=== PATIENT | male | born 1950 | race Caucasian/White ===

== ENCOUNTER → 2019-08-06 14:53 | Outpatient (ROUT) | payer MEDICARE, OTHER, SELFPAY ==
[2019-08-06 15:23] LABS: Add Manual Diff / Slide Review NO; Basophils Absolute Auto 0 /uL (0-100); Basophils Percent Auto 0.5 % (0-2); Eosinophils Absolute Auto 100 /uL (0-450); Hematocrit 41.9 % (41-53); Hemoglobin 14.5 g/dL (13.5-17.5); Lymphocytes Absolute Auto 1900 /uL (1100-4500); Lymphocytes Percent Auto 40.1 % (25-40); Mean Corpuscular HGB Conc 34.7 % (30-36); Mean Corpuscular Hemoglobin 30.1 PG (26-34); Mean Corpuscular Volume 86.7 fL (80-100); Monocytes Absolute Auto 400 /uL (0-900); Monocytes Percent Auto 9.1 % (3-14); Neutrophils Absolute Auto 2300 /uL (1500-7000); Neutrophils Percent Auto 47.3 % (50-75); Platelet Count 231 X10^3/uL (150-400); Red Blood Cell Count 4.83 X10^6/uL (4.5-5.9); Red Cell Distribution Width 13.7 % (11.6-14.8); White Blood Cell Count 4.9 X10^3/uL (4.5-11.0)
[2019-08-06 15:29] LABS: Alanine Aminotransferase 18 IU/L (<50); Albumin 4.3 g/dL (3.5-5.0); Albumin Globulin Ratio 1.6 (1.0-2.8); Alkaline Phosphatase 56 U/L (38-126); Amylase 44 U/L (30-110); Aspartate Aminotransferase 23 IU/L (17-59); Bilirubin Total 0.6 mg/dL (0.2-1.3); Blood Urea Nitrogen 23 mg/dL (9-20); Calcium 9.9 mg/dL (8.4-10.2); Carbon Dioxide 30 mmol/L (22-32); Chloride 103 mmol/L (98-107); Cholesterol 219 mg/dL (140-199); Estimated Glomerular Filt Rate > 60.0 mL/min (>60); Globulin 2.7 g/dL (1.7-4.1); Glucose 95 mg/dL (80-110); HDL Cholesterol 48 mg/dL (40-60); HEMOLYSIS < 15 (0-50); LDL Cholesterol Calculated 113 mg/dL (<100); Lipase 147 U/L (23-300); Potassium 4.3 mmol/L (3.4-5.1); Sodium 139 mmol/L (137-145); Triglycerides 289 mg/dL (35-150)
[2019-08-06 15:59] LABS: Prostate Specific Antigen 1.38 ng/mL (0.10-4.00)
[2019-08-06 16:01] LABS: TSH w/ Reflex to FT4 2.08 uIU/mL (0.47-4.68)
[2019-08-09 11:18] LABS: Cancer (Carbohydrate) Ag 19-9 10 U/mL (< 34)
== END ==
PROVIDERS: Visit Provider Internal Medicine
DX: Z80.0 Family history of malignant neoplasm of digestive organs (principal); N52.9 Male erectile dysfunction, unspecified; E78.2 Mixed hyperlipidemia; R10.11 Right upper quadrant pain
CPT/HCPCS: 80053; 80061; 82150; 83690; 84153; 84403; 84443; 85025; 86301

== ENCOUNTER → 2020-05-30 08:25 | Outpatient (CLI) | payer MEDICARE, OTHER, SELFPAY ==
[2020-05-30 11:13] LABS: COVID19 -Nasal RAPID Negative (Negative)
== END ==
PROVIDERS: Visit Provider Physician Assistant
DX: Z11.59 Encounter for screening for other viral diseases (principal)
CPT/HCPCS: 87635

== ENCOUNTER 2020-06-01 08:24 | Day surgery (SDC) | payer MEDICARE, OTHER, SELFPAY ==
[2020-06-01] VITALS (7 sets, daily range): BP systolic 116–142; BP diastolic 74–92; PULSE 66–82; RESP 12–16; TEMP 36.3–36.9; O2SAT 91–97; BMI 25.8
--- NOTE | 2020-06-01 | PATH_ITS ---
[facility] Accession Number: [id number] . 01 Material submitted: . PART A: cecum - POLYPS AT CECUM PART B: colon - DISTAL TRANSVERSE COLON POLYPS . 01 Clinical history: . SCREENING COLONOSCOPY . 02 Diagnosis: A. Cecum, Polyps: Fragments of sessile serrated adenoma. . B. Distal Transverse Colon, Polyps: Colonic mucosa with prominent benign lymphoid aggregate x1. Colonic mucosa with no diagnostic abnormality, consistent with polypoid redundancy x1. Negative for serrated lesion, dysplasia or malignancy. MRV 06/03/2020 1037 Local . 02 Electronically signed: . Bryce Alexis MD, PhD, Pathologist NPI- [id number] . 01 Gross description: . Part A: POLYPS AT CECUM: Received in formalin are 4 fragment(s) of torres, soft tissue measuring 0.3 x 0.3 x 0.2 cm to 0.3 x 0.3 x 0.3 cm submitted entirely in 1 cassette(s) Part B: DISTAL TRANSVERSE COLON POLYPS: Received in formalin are 2 fragment(s) of torres, soft tissue measuring 0.7 x 0.2 x 0.1 cm to 0.2 x 0.1 x 0.1 cm submitted entirely in 1 cassette(s) /QBJ 06/02/2020 0716 Local . 02 Pathologist provided ICD-10: D12.0, K63.5 . 02 CPT . 273431, 538314 Performed at: 01 LabCounts include 234 beds at the [facility] [address] [place] [address], [place], [place] [id number] MD Viktor Jacobs MD Phone: [phone] [facility]formed at: [facility] [place] [address] [place], [place] [id number] MD Nasrin Coombs MD Phone: [phone]
[2020-06-01] MEDS: SODIUM CHLORIDE 0.9% 1,000 ML 21 ML IV (08:46)
--- NOTE | 2020-06-01 09:02 | PM.HP.1 ---
History of Present Illness History of Present Illness Date Patient Seen: 06/01/20 Chief complaint: SCREENING COLONOSCOPY Narrative: Colorectal cancer screening. Second colonoscopy. Last over 10 years ago Patient History Medical History (Updated 06/01/20 @ 08:42 by Nasrin Goode RN) Hypercholesteremia Family & Social History Social History: household members spouse Tobacco & Substance use: Smoking Status Never smoker alcohol intake current alcohol intake frequency a few times a month Substance Use Type does not use Meds Home Medications and Allergies Home Medications Medication Instructions Recorded Confirmed Type No Known Home Medications 06/01/20 06/01/20 History Allergies Allergy/AdvReac Type Severity Reaction Status Date / Time No Known Drug Allergies Allergy Verified 06/01/20 08:42 Exam Vital Signs (past 8 hours): - 06/01/20 08:47 Temperature 97.4 F L Pulse Rate 73 Respiratory Rate 16 Blood Pressure 142/92 H Pulse Oximetry 97 Oxygen Delivery Method Room Air Narrative Exam Narrative: Oropharynx free of lesions Chest clear to auscultation percussion Cardiac exam reveals no S3 or murmur Assessment & Plan Assessment & Plan narrative: Colon cancer screening. Risks, benefits, alternatives have been explained.
--- NOTE | 2020-06-01 09:03 | PM.OP.ENDO ---
Operative Date/Time/Diagnoses Date of procedure: 06/01/20 Pre-op diagnosis: See indication and findings Procedure & Clinicians Study performed: Colonoscopy Same procedure as scheduled: Yes Indications: Need for colorectal cancer screening. Last colonoscopy -11 to 12 years ago Surgeon: Karlee Long Procedure Notes Procedure in detail: After informed consent was obtained the patient was placed in left lateral decubitus position. The video colonoscope was introduced the rectum slowly advanced to the cecum. Preparation was good. On slow withdrawal mucosa was carefully examined. The scope was removed. The patient tolerated procedure well. Blood loss none Complications none Sedation Total sedation time 12 minutes Versed 5 mg fentanyl 100 micro g IV titration Findings 1. Extensive sigmoid diverticulosis with small mouthed diverticula 2. Three polyps labeled cecum. All were 3-4 mm in size. One was on the IC valve, 1 was on the cecal rim, one was just distal to the cecal rim. All were cold biopsied and removed with Jumbo biopsy forceps 3. Two polyps 3-4 mm in size in the distal transverse colon. All were removed with Jumbo biopsy forceps 4. Otherwise negative colonoscopy to cecum Patient will need follow-up and interval to be dictated by the pathology report.
[2020-06-01] MEDS: fentaNYL 250 MCG/5 ML INJ IV (09:23)
[2020-06-01] MEDS: MIDAZOLAM 5 MG/5 ML VIAL IV (09:31)
== END 2020-06-01 10:31 | disposition home or self-care (01) ==
PROVIDERS: PCP Internal Medicine; Referring Provider Internal Medicine; Visit Provider Internal Medicine Gastroenterology
PROC: 0DJD8ZZ Inspection of Lower Intestinal Tract, Via Natural or Artificial Opening Endoscopic (ICD-10-PCS; CPT 45378; principal; 2020-06-01 09:30)
DX: Z12.11 Encounter for screening for malignant neoplasm of colon (principal); K57.30 Diverticulosis of large intestine without perforation or abscess without bleeding; D12.0 Benign neoplasm of cecum; E78.00 Pure hypercholesterolemia, unspecified
CPT/HCPCS: 45380; J2250; J3010

== ENCOUNTER → 2020-08-11 13:04 | Outpatient (CLI) | payer MEDICARE, OTHER, SELFPAY ==
[2020-08-11] MEDS: COVID-19 VACC #1, MRNA(MOD) 100 MCG/0.5 ML VIAL IM (13:08)
== END ==
PROVIDERS: PCP Internal Medicine; Visit Provider Internal Medicine
DX: Z23 Encounter for immunization (principal)
CPT/HCPCS: 0011A; 91301

== ENCOUNTER → 2020-09-08 12:44 | Outpatient (CLI) | payer MEDICARE, OTHER, SELFPAY ==
[2020-09-08] MEDS: COVID-19 VACC #2, MRNA(MOD) 100 MCG/0.5 ML VIAL IM (12:54)
== END ==
PROVIDERS: PCP Internal Medicine; Visit Provider Internal Medicine
DX: Z23 Encounter for immunization (principal)
CPT/HCPCS: 0012A; 91301

== ENCOUNTER → 2022-02-06 11:06 | Outpatient (CLI) | payer MEDICARE, OTHER, SELFPAY ==
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
== END ==
PROVIDERS: PCP Internal Medicine; Referring Provider Physician Assistant; Visit Provider Physician Assistant
DX: M47.817 Spondylosis without myelopathy or radiculopathy, lumbosacral region (principal); M16.0 Bilateral primary osteoarthritis of hip; R52 Pain, unspecified
CPT/HCPCS: 71101; 73502

== ENCOUNTER → 2022-05-23 09:00 | Outpatient (CLI) | payer MEDICARE, OTHER, SELFPAY ==
[2022-05-23 09:55] LABS: Hematocrit 42.4 % (41-53); Hemoglobin 14.3 g/dL (13.5-17.5); Mean Corpuscular HGB Conc 33.7 % (30-36); Mean Corpuscular Hemoglobin 29.4 PG (26-34); Mean Corpuscular Volume 87.2 fL (80-100); Platelet Count 208 X10^3/uL (150-400); Red Blood Cell Count 4.86 X10^6/uL (4.5-5.9); Red Cell Distribution Width 13.7 % (11.6-14.8); White Blood Cell Count 5.1 X10^3/uL (4.5-11.0)
[2022-05-23 10:30] LABS: Alanine Aminotransferase 30 IU/L (<50); Albumin 4.2 g/dL (3.5-5.0); Albumin Globulin Ratio 1.6 (1.0-2.8); Alkaline Phosphatase 57 U/L (38-126); Aspartate Aminotransferase 24 IU/L (17-59); BUN Creatinine Ratio 26.2 (6-22); Bilirubin Total 0.5 mg/dL (0.2-1.3); Blood Urea Nitrogen 22 mg/dL (9-20); Calcium 9.2 mg/dL (8.4-10.2); Carbon Dioxide 29 mmol/L (22-32); Chloride 102 mmol/L (98-107); Cholesterol 165 mg/dL (140-199); Estimated Glomerular Filt Rate > 60 mL/min (>60); Globulin 2.6 g/dL (1.7-4.1); Glucose 70 mg/dL (80-110); HDL Cholesterol 58 mg/dL (40-60); HEMOLYSIS < 15 (0-50); LDL Cholesterol Calculated 66 mg/dL (<100); Potassium 4.1 mmol/L (3.4-5.1); Sodium 138 mmol/L (137-145); Total Protein 6.8 g/dL (6.3-8.2); Triglycerides 207 mg/dL (35-150)
[2022-05-23 10:57] LABS: TSH w/ Reflex to FT4 2.03 uIU/mL (0.47-4.68)
[2022-05-23 10:58] LABS: Prostate Specific Antigen 2.43 ng/mL (0.10-4.00)
== END ==
PROVIDERS: PCP Internal Medicine; Referring Provider Internal Medicine; Visit Provider Internal Medicine
DX: E78.2 Mixed hyperlipidemia (principal); N40.1 Benign prostatic hyperplasia with lower urinary tract symptoms; N13.8 Other obstructive and reflux uropathy; Z86.010 Personal history of colon polyps
CPT/HCPCS: 36415; 80053; 80061; 84153; 84443; 85027

== ENCOUNTER 2022-07-02 14:30 | Outpatient (RCR) | payer MEDICARE, OTHER, SELFPAY ==
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
--- NOTE | 2022-06-04 17:33 | PT.OPPOC ---
Physical, Occupational & Speech Therapy At [facility] Current Diagnoses Other shoulder lesions, right shoulder (06/04/22) Visit Care Team Role Provider Type Tristan Contreras MD Attending Provider Physician Primary Care Provider Referring Provider Specialty: Internal Medicine Address: [address] [place] [address], [id number] Email: [email or web address] Plan Of Care PT-OP-T Assessment and Plan Start: 06/01/22 18:08 Freq: Status: Active Protocol: Document 06/04/22 09:06 LRN (Rec: 06/04/22 12:53 LRN [id number]) Physical Therapy Assessment Rehab Potential Rehabilitation Potential Excellent Evaluation Complexity Number of Personal Factors/Comorbidities 1-2 Number of Body Systems Impaired 4 or More Clinical Presentation at Evaluation Evolving Impairments Impairments Activity Tolerance,Functional Mobility,Pain,Posture,ROM,Soft Tissue Mobility,Strength Goals Four Impairment R shoulder Impairment Pain ful ar with active shoulder flexion and AB. Painful arc flexion is 100-140 deg's. Painful arc with AB starting at 90 deg's. Short Term Goal (STG) Improve R shoulder rotator cuff strength with reduction of painful arc. STG Duration 07/02/22 Long-Term Goal (LTG) Improve R shoulder strength with pt able to put something up on a shelf overhead without pain. LTG Duration 08/31/22 Three Impairment R shoulder pain interrupts sleep, pain rated 3/10. Impairment Pt currently wakes 4-5x/night due to R shoulder pain (norm is 7-8 hrs of broken sleep, waking 2x/night). Short Term Goal (STG) Pt will be educated in sleeping postures to minimize onset of R shoulder pain. STG Duration 06/15/22 Long-Term Goal (LTG) Pt will be able to sleep better at night, waking 2x/ night, his baseline. LTG Duration 08/31/22 Two Impairment Decreased R shoulder PROM Impairment + impingement with forced R shoulder flexion in sitting and supine. PROM (in deg's): Flex 165 R, 180 L; 90 R. Record Pressman Goal (LTG) Increasing PROM to have less pain with dressing and sleeping. LTG Duration 08/31/22 One Impairment HEP Short Term Goal (STG) Pt will be independent on a scapular stabilizing HEP to provide strength and muscle support to the R shoulder. STG Duration 07/02/22 Long-Term Goal (LTG) Pt will be independent on a self care, specific shoulder home program to prevent reinjury of R shoulder. LTG Duration 08/31/22 Assessment Summary Assessment Pt is a 71 yo male who presents with + impingement symptoms during provocation testing, indicating R rotator cuff dysfunction. He appears to have atrophy of the Supraspinatus and is getting anterior shoulder impingement. Pt was guarded; therefore did not perform Clunk Test for possible joint dysfunction. Pt did appear to have greater R GHJ mobility. Physical Therapy Plan Frequency and Duration Frequency of Treatment 2x/Week Plan of Care Start Date 06/04/22 Plan of Care End Date 08/31/22 Therapeutic Interventions Therapeutic Interventions Home Exercise Program,Manual Therapy,Patient/Caregiver Education,Self-Care/Home Management,Soft Tissue Mobilization,Taping, Therapeutic Activities, Therapeutic Exercises Modalities Cold Pack/Ice Massage,Electric Stimulation,Hot Packs, Ultrasound Other Referrals/Consults Referrals/Consults Recommended If pt is not able to make good progress in 6 weeks, then further imaging would be recommended. Next Visit Focus/Plan Next Note Type Treatment Note Next Visit Plan MMT shoulder and elbows, assess R shoulder clunk test. Assess PROM/AROM R shoulder painful arc & reaching across chest. Education: Best night time positioning to reduce R shoulder pain. Ex's: ROM & R shoulder RC and scapular stabilizer strengthening. Modalities for pain: Cryotherapy. US if prolonged pain. Plan of Care Dates Plan of Care Start Date 06/04/22 Plan of Care End Date 08/31/22 Electronically Signed by: Zoraida Daniel, PT 06/04/22 5207 If you are in agreement with this Plan of Care, please return a signed and dated copy. I have reviewed this Plan of Care and certify that the skilled therapy services above are required to meet the patient?s needs. Physician Signature Date Printed Name and Credentials Clinical Instructor Signature Printed Name and Credentials
--- NOTE | 2022-06-12 19:00 | PT.OTN ---
Current Diagnoses Other shoulder lesions, right shoulder (06/12/22) Physical Therapy Treatment Note PT-OP-A Visit Information Start: 06/01/22 18:08 Freq: Status: Active Protocol: Document 06/12/22 08:16 LRN (Rec: 06/12/22 09:01 LRN [id number]) Out-Patient Physical Therapy Visit Information Visit Information Visit Type Treatment Note Visit Start Time 08:16 Visit Stop Time 08:58 Total Visit Minutes 42 Visit Number 2 Evaluation Information Evaluation Date 06/04/22 Precautions Precautions Melanoma on nose w/surgery 2009. PT-OP-B Current Condition Start: 06/01/22 18:08 Freq: Status: Active Protocol: Document 06/04/22 09:06 LRN (Rec: 06/04/22 12:53 LRN [id number]) Current Condition History of Current Condition Onset Date 2017, reinjured 2 months ago. Current Complaints R shoulder pain. History of Current Condition Originally hiking and fell forward; he grabbed something causing his arm to be pulled backwards while he fell forward and he felt something pull in the R shoulder. Two months ago was pulling his kayak with his R arm (post kayaking) and fell foward. He again felt something pull in the R shoulder. He now has R shoulder pain with sleeping and decreased AROM. Tends to sleep on hi R side with arm overhead and sometimes in all different positions. Pt is L handed. PMH: Mealanoma surgery bridge of nose of 2009 . Prior Treatments and Tests None. Initial injury no tests, took care of itself on its own. Future Testing and Treatments Planned None Developmental History Developmental History Dupytren's on L hand ring finger. Treatment Goals Patient/Caregiver Goals Pt goal is to be able to sleep better at night (norm is 7-8 hr broken sleep 4-5x; currently 7-8 hrs broken sleep waking 2x and with R shoulder pain). Increase strength and muscle support. Decreasing or eleviating rid of pain when pulling arm back. Increasing ROM to have less pain with putting something on a shelf, dressing. Prevent reinjury with a specific shoulder home program . Prior Functional Status Baseline Function- ADL's Independent Baseline Function- Mobility Independent Baseline Function- Other Pt has 7-8 hrs of broken sleep waking 2x a night. Current Functional Impairments (Reported) Functional Limitations- ADL's Pt has 7-8 hrs of broken sleep , waking 4-5x a night with R shoulder pain. Personal Factors Other Personal Factors That May Effect Doesn't do much ex during Therapy/Recovery winter. PT-OP-C Subjective Start: 06/01/22 18:08 Freq: Status: Active Protocol: Document 06/12/22 08:16 LRN (Rec: 06/12/22 09:01 LRN [id number]) OP-PT Subjective Patient Comments Patient Comments Maybe a little better. PT-OP-E Functional Tests Start: 06/01/22 18:08 Freq: Status: Active Protocol: Document 06/04/22 09:06 LRN (Rec: 06/04/22 12:53 LRN [id number]) Functional Tests Apley's Scratch Test Action 2- Left T2 Action 2- Right C6 Action 3- Left T11 Action 3- Right L1 PT-OP-J Posture/Palpation/Skin Start: 06/01/22 18:08 Freq: Status: Active Protocol: Document 06/04/22 09:06 LRN (Rec: 06/04/22 12:53 LRN [id number]) Posture Evaluation Position Standing Head/C-Spine Posture Forward Head T-Spine Posture Flattened L-Spine Posture Decreased Lordosis Scapula Posture (R) Protracted,(R) Retracted,( R) Rotated Up Arm Posture (L) Internally Rotated Pelvis Posture Anteriorly Tilted Weight Distribution Balanced Comments Posture Comments R shoulder retracted, R foot ER> L foot, R arm-mild IR, notable IR of L arm. Palpation Assessment Location R shoulder Palpation Location Around shoulder joint. Palpation Details No palpable pain. Supraspinatus atrophy. PT-OP-K Range of Motion Start: 06/01/22 18:08 Freq: Status: Active Protocol: Document 06/12/22 08:16 LRN (Rec: 06/12/22 09:01 LRN [id number]) Shoulder Goniometric Range of Motion Shoulder Right Passive Testing Position Supine Flexion 165 Abduction 130 External Rotation at 90 degrees 90 Abduction Internal Rotation 60 Comments Pain 130 - 180 deg's AB Left Passive Testing Position Supine Flexion 180 External Rotation at 90 degrees 90 Abduction Internal Rotation 60 Right Active Testing Position Sitting Flexion 155 Extension 55 Abduction 180 Internal Rotation Behind Back (text) L1 Comments Painful arc 100-140 deg's Left Active Testing Position Sitting Flexion 155 Extension 50 Abduction 180 Internal Rotation Behind Back (text) T11 Comments ROM is taken with cuing to UB not to arch. ER T2-T3 interspace. PT-OP-L Special Tests Start: 06/01/22 18:08 Freq: Status: Active Protocol: Document 06/04/22 09:06 LRN (Rec: 06/04/22 12:53 LRN [id number]) Special Tests Shoulder Special Tests AC Joint Compression Test Results - R Belly Press Test Results - R Empty Can Test Results - R IR/Horizontal ADD Impingement Test Results - R Elevation Impingement Test Results + R PT-OP-M Strength Start: 06/01/22 18:08 Freq: Status: Active Protocol: Document 06/12/22 08:16 LRN (Rec: 06/12/22 09:01 LRN [id number]) Shoulder Strength Shoulder Manual Muscle Testing Right Flexion 4- Good- Extension 5 Normal Abduction (C5) 5 Normal Adduction 5 Normal External Rotation 4- Good- Internal Rotation 4- Good- Left Comments Generally 5/5 Elbow/Forearm Strength Elbow and Forearm Manual Muscle Testing Right Comments Generally 5/5 Left Comments Generally 5/5 PT-OP-Q Treatments Start: 06/01/22 18:08 Freq: Status: Active Protocol: Document 06/12/22 08:16 LRN (Rec: 06/12/22 09:01 LRN [id number]) Therapeutic Exercises Supine Exercises Lat pull down Supine Exercise Name Lat pull down Side bilateral Equipment Used Lev 2 TB Reps/Minutes 15x Sitting Exercises Shoulder IR strengthening Sitting Exercise Name Shoulder IR strengthening Side right Reps/Minutes 15x 2 Comments N0 pain, extra time to determine max tolerated range. Shoulder ER strengthening Sitting Exercise Name Shoulder ER strengthening Side right Equipment Used Lev 2 Reps/Minutes 15x 3 Comments N0 pain, extra time to determine max tolerated range. Standing Exercises Scapular retract/depression Standing Exercise Name Active scapular retract/ depression Side bilateral Equipment Used mirror Reps/Minutes 15x 2 Comments Extra time to train for proper movement. Self-Care/Home Management Treatment Education Patient Education Body Mechanics,Home Exercise Program,Pain Management Other Education Educated pt in shoulder anatomy and possible reasons for pain, with model used. I/S pt in use of crotherapy for pain management. Activities Self-Care/Home Management Activities Issued & reviewed HEP of: dangling arm (codman), scapular retract row w/o TB, and shoulder rolls. PT-OP-T Assessment and Plan Start: 06/01/22 18:08 Freq: Status: Active Protocol: Document 06/12/22 08:16 LRN (Rec: 06/12/22 09:01 LRN [id number]) Physical Therapy Assessment Goals Four Impairment R shoulder Impairment Pain ful ar with active shoulder flexion and AB. Painful arc flexion is 100-140 deg's. Painful arc with AB starting at 90 deg's. Short Term Goal (STG) Improve R shoulder rotator cuff strength with reduction of painful arc. STG Duration 07/02/22 Test Preparation Tutor Goal (LTG) Improve R shoulder strength with pt able to put something up on a shelf overhead without pain. LTG Duration 08/31/22 Three Impairment R shoulder pain interrupts sleep, pain rated 3/10. Impairment Pt currently wakes 4-5x/night due to R shoulder pain (norm is 7-8 hrs of broken sleep, waking 2x/night). Short Term Goal (STG) Pt will be educated in sleeping postures to minimize onset of R shoulder pain. STG Duration 06/15/22 Test Preparation Tutor Goal (LTG) Pt will be able to sleep better at night, waking 2x/ night, his baseline. LTG Duration 08/31/22 Two Impairment Decreased R shoulder PROM Impairment + impingement with forced R shoulder flexion in sitting and supine. PROM (in deg's): Flex 165 R, 180 L; 90 R. Test Preparation Tutor Goal (LTG) Increasing PROM to have less pain with dressing and sleeping. LTG Duration 08/31/22 One Impairment HEP Short Term Goal (STG) Pt will be independent on a scapular stabilizing HEP to provide strength and muscle support to the R shoulder. 06/12/22: HEP: Shoulder ER/ IR, scap retract/depression, shoulder rolls. STG Duration 07/02/22 progressing [facility] Goal (LTG) Pt will be independent on a self care, specific shoulder home program to prevent reinjury of R shoulder. 06/12/22: HEP: Shoulder ER/ IR, scap retract/depression, shoulder rolls. LTG Duration 08/31/22 Progress Towards Goals Progress Comments Progressed HEP. Assessment Summary Assessment R shoulder strength is limited with IR/ER due to pain but AB is normal; therefore it appears RC dysfunction is with subscapularis and posterior scapular muscles. Elbow strength is WNL. Shoulder sore with IR strengthening, and R shoulder painful arc is less at 130-180 deg's supine ( was 100-140 deg's sitting). Physical Therapy Plan Frequency and Duration Frequency of Treatment 2x/Week Plan of Care Start Date 06/04/22 Plan of Care End Date 08/31/22 Next Visit Focus/Plan Next Note Type Treatment Note Next Visit Plan Assess R shoulder clunk test. Assess PROM/AROM R shoulder reaching across chest. Education: Best night time positioning to reduce R shoulder pain (STG 3). Ex's: ROM & R shoulder RC and scapular stabilizer strengthening (caution with IR due to discomfort with strengthening). Modalities for pain: Cryotherapy. US if prolonged pain.
--- NOTE | 2022-06-14 08:13 | PT.OTN ---
Current Diagnoses Other shoulder lesions, right shoulder (06/14/22) Physical Therapy Treatment Note PT-OP-A Visit Information Start: 06/01/22 18:08 Freq: Status: Active Protocol: Document 06/14/22 07:30 TS (Rec: 06/14/22 09:49 TS [id number]) Out-Patient Physical Therapy Visit Information Visit Information Visit Type Treatment Note Visit Note SAAD Wren lead treatment under direction and supervision of MELISSA Egan. Visit Start Time 07:30 Visit Stop Time 08:13 Total Visit Minutes 43 Visit Number 3 PT-OP-B Current Condition Start: 06/01/22 18:08 Freq: Status: Active Protocol: Document 06/04/22 09:06 LRN (Rec: 06/04/22 12:53 LRN [id number]) Current Condition History of Current Condition Onset Date 2017, reinjured 2 months ago. Current Complaints R shoulder pain. History of Current Condition Originally hiking and fell forward; he grabbed something causing his arm to be pulled backwards while he fell forward and he felt something pull in the R shoulder. Two months ago was pulling his kayak with his R arm (post kayaking) and fell foward. He again felt something pull in the R shoulder. He now has R shoulder pain with sleeping and decreased AROM. Tends to sleep on hi R side with arm overhead and sometimes in all different positions. Pt is L handed. PMH: Mealanoma surgery bridge of nose of 2009 . Prior Treatments and Tests None. Initial injury no tests, took care of itself on its own. Future Testing and Treatments Planned None Developmental History Developmental History Dupytren's on L hand ring finger. Treatment Goals Patient/Caregiver Goals Pt goal is to be able to sleep better at night (norm is 7-8 hr broken sleep 4-5x; currently 7-8 hrs broken sleep waking 2x and with R shoulder pain). Increase strength and muscle support. Decreasing or eleviating rid of pain when pulling arm back. Increasing ROM to have less pain with putting something on a shelf, dressing. Prevent reinjury with a specific shoulder home program . Prior Functional Status Baseline Function- ADL's Independent Baseline Function- Mobility Independent Baseline Function- Other Pt has 7-8 hrs of broken sleep waking 2x a night. Current Functional Impairments (Reported) Functional Limitations- ADL's Pt has 7-8 hrs of broken sleep , waking 4-5x a night with R shoulder pain. Personal Factors Other Personal Factors That May Effect Doesn't do much ex during Therapy/Recovery winter months. PT-OP-C Subjective Start: 06/01/22 18:08 Freq: Status: Active Protocol: Document 06/14/22 07:30 TS (Rec: 06/14/22 09:49 TS [id number]) OP-PT Subjective Patient Comments Patient Comments Pt reports R shoulder is feeling pretty good today. He is doing better about not sleeping on his R shoulder. PT-OP-E Functional Tests Start: 06/01/22 18:08 Freq: Status: Active Protocol: Document 06/04/22 09:06 LRN (Rec: 06/04/22 12:53 LRN [id number]) Functional Tests Apley's Scratch Test Action 2- Left T2 Action 2- Right C6 Action 3- Left T11 Action 3- Right L1 PT-OP-J Posture/Palpation/Skin Start: 06/01/22 18:08 Freq: Status: Active Protocol: Document 06/04/22 09:06 LRN (Rec: 06/04/22 12:53 LRN [id number]) Posture Evaluation Position Standing Head/C-Spine Posture Forward Head T-Spine Posture Flattened L-Spine Posture Decreased Lordosis Scapula Posture (R) Protracted,(R) Retracted,( R) Rotated Up Arm Posture (L) Internally Rotated Pelvis Posture Anteriorly Tilted Weight Distribution Balanced Comments Posture Comments R shoulder retracted, R foot ER> L foot, R arm-mild IR, notable IR of L arm. Palpation Assessment Location R shoulder Palpation Location Around shoulder joint. Palpation Details No palpable pain. Supraspinatus atrophy. PT-OP-K Range of Motion Start: 06/01/22 18:08 Freq: Status: Active Protocol: Document 06/12/22 08:16 LRN (Rec: 06/12/22 09:01 LRN [id number]) Shoulder Goniometric Range of Motion Shoulder Right Passive Testing Position Supine Flexion 165 Abduction 130 External Rotation at 90 degrees 90 Abduction Internal Rotation 60 Comments Pain 130 - 180 deg's AB Left Passive Testing Position Supine Flexion 180 External Rotation at 90 degrees 90 Abduction Internal Rotation 60 Right Active Testing Position Sitting Flexion 155 Extension 55 Abduction 180 Internal Rotation Behind Back (text) L1 Comments Painful arc 100-140 deg's Left Active Testing Position Sitting Flexion 155 Extension 50 Abduction 180 Internal Rotation Behind Back (text) T11 Comments ROM is taken with cuing to UB not to arch. ER T2-T3 interspace. PT-OP-L Special Tests Start: 06/01/22 18:08 Freq: Status: Active Protocol: Document 06/04/22 09:06 LRN (Rec: 06/04/22 12:53 LRN [id number]) Special Tests Shoulder Special Tests AC Joint Compression Test Results - R Belly Press Test Results - R Empty Can Test Results - R IR/Horizontal ADD Impingement Test Results - R Elevation Impingement Test Results + R PT-OP-M Strength Start: 06/01/22 18:08 Freq: Status: Active Protocol: Document 06/12/22 08:16 LRN (Rec: 06/12/22 09:01 LRN [id number]) Shoulder Strength Shoulder Manual Muscle Testing Right Flexion 4- Good- Extension 5 Normal Abduction (C5) 5 Normal Adduction 5 Normal External Rotation 4- Good- Internal Rotation 4- Good- Left Comments Generally 5/5 Elbow/Forearm Strength Elbow and Forearm Manual Muscle Testing Right Comments Generally 5/5 Left Comments Generally 5/5 PT-OP-Q Treatments Start: 06/01/22 18:08 Freq: Status: Active Protocol: Document 06/14/22 07:30 TS (Rec: 06/14/22 09:49 TS [id number]) Therapeutic Exercises Supine Exercises HABD AROM Side right Reps/Minutes 1x15 Comments Pt reports slight discomfort on anterior shoulder with a pull or twinge Lat pull down Supine Exercise Name Lat pull down Side bilateral Equipment Used Lev 2 TB, red dowel Reps/Minutes 2x10 Comments Good carryover from previous treatment Sitting Exercises UT, LV Stretch Sitting Exercise Name UT, levator scap Side bilateral Reps/Minutes 3x30 Comments Good response to stretch, reports imporved donning of jacket. Lat Pulldown Sitting Exercise Name Demonstrated for home Side bilateral Reps/Minutes 2x10 Comments Cues for arms further apart, upright posture Rows Sitting Exercise Name Standing Reps/Minutes 2x10 Comments Cues for scap retract, posture , elbow tucked D2 Reps/Minutes 1x10 tb1, 1x10 no TB Comments Cues for pain free Shoulder IR strengthening Sitting Exercise Name Shoulder IR strengthening, standing Side right Reps/Minutes 10x 2 Comments Cues for elbow tuck, posture, pain free range Shoulder ER strengthening Sitting Exercise Name Shoulder ER strengthening, standing Side right Equipment Used Lev 2 Reps/Minutes 2x10 Comments Cues for elbow tuck, posture Standing Exercises Serratus Punch Standing Exercise Name Added to HEP Side bilateral Equipment Used LVL 1 TB Reps/Minutes 2x10 Comments Cues for no UT act PT-OP-T Assessment and Plan Start: 06/01/22 18:08 Freq: Status: Active Protocol: Document 06/14/22 07:30 TS (Rec: 06/14/22 09:49 TS [id number]) Physical Therapy Assessment Goals Four Impairment R shoulder Impairment Pain ful ar with active shoulder flexion and AB. Painful arc flexion is 100-140 deg's. Painful arc with AB starting at 90 deg's. Short Term Goal (STG) Improve R shoulder rotator cuff strength with reduction of painful arc. STG Duration 07/02/22 Avionics Repair Technician Goal (LTG) Improve R shoulder strength with pt able to put something up on a shelf overhead without pain. LTG Duration 08/31/22 Three Impairment R shoulder pain interrupts sleep, pain rated 3/10. Impairment Pt currently wakes 4-5x/night due to R shoulder pain (norm is 7-8 hrs of broken sleep, waking 2x/night). Short Term Goal (STG) Pt will be educated in sleeping postures to minimize onset of R shoulder pain. STG Duration 06/15/22 [facility] Goal (LTG) Pt will be able to sleep better at night, waking 2x/ night, his baseline. LTG Duration 08/31/22 Two Impairment Decreased R shoulder PROM Impairment + impingement with forced R shoulder flexion in sitting and supine. PROM (in deg's): Flex 165 R, 180 L; 90 R. Avionics Repair Technician Goal (LTG) Increasing PROM to have less pain with dressing and sleeping. LTG Duration 08/31/22 One Impairment HEP Short Term Goal (STG) Pt will be independent on a scapular stabilizing HEP to provide strength and muscle support to the R shoulder. 06/12/22: HEP: Shoulder ER/ IR, scap retract/depression, shoulder rolls. 06/14/22: Serratus punches with TB, UT stretch, LS stretch. STG Duration 07/02/22 progressing 06/14 [facility] Goal (LTG) Pt will be independent on a self care, specific shoulder home program to prevent reinjury of R shoulder. 06/12/22: HEP: Shoulder ER/ IR, scap retract/depression, shoulder rolls. 06/14/22:Serratus punches with TB, UT Stretch, LS stretch. LTG Duration 08/31/22 Progressing 06/14/22 Assessment Summary Assessment Pt reports less difficulty donning coat after UT/LV stretch. Pt reported slight discomfort/twinge in shoulder with HABD. Pt required consistent cues to stay in pain free range during ex. Pt progressed IR with tb lvl 2, reported feeling fatigued but no discomfort. Pt will continue to benefit from intervention to improve R shoulder ROM/strength for donnning/doffing clothing. Physical Therapy Plan Frequency and Duration Frequency of Treatment 2x/Week Plan of Care Start Date 06/04/22 Plan of Care End Date 08/31/22 Therapeutic Interventions Therapeutic Interventions Home Exercise Program,Manual Therapy,Patient/Caregiver Education,Self-Care/Home Management,Soft Tissue Mobilization,Taping, Therapeutic Activities, Therapeutic Exercises Modalities Cold Pack/Ice Massage,Electric Stimulation,Hot Packs, Ultrasound Next Visit Focus/Plan Next Visit Plan Assess ROM and clunk test next treatment. Continue shoulder ex, assess HEP (UT/LS stretch, serratus punches). Give feedback to goals. Education: Best night time positioning to reduce R shoulder pain (STG 3). Ex's: ROM & R shoulder RC and scapular stabilizer strengthening (caution with IR due to discomfort with strengthening). Modalities for pain: Cryotherapy. US if prolonged pain.
--- NOTE | 2022-06-26 10:05 | PT.OTN ---
Current Diagnoses Other shoulder lesions, right shoulder (06/26/22) Physical Therapy Treatment Note PT-OP-A Visit Information Start: 06/01/22 18:08 Freq: Status: Active Protocol: Document 06/26/22 08:14 LRN (Rec: 06/26/22 09:04 LRN [id number]) Out-Patient Physical Therapy Visit Information Visit Information Visit Type Treatment Note Visit Start Time 08:15 Visit Stop Time 08:56 Total Visit Minutes 41 Visit Number 4 Evaluation Information Evaluation Date 06/04/22 Precautions Precautions Melanoma on nose w/surgery 2009. PT-OP-B Current Condition Start: 06/01/22 18:08 Freq: Status: Active Protocol: Document 06/04/22 09:06 LRN (Rec: 06/04/22 12:53 LRN [id number]) Current Condition History of Current Condition Onset Date 2017, reinjured 2 months ago. Current Complaints R shoulder pain. History of Current Condition Originally hiking and fell forward; he grabbed something causing his arm to be pulled backwards while he fell forward and he felt something pull in the R shoulder. Two months ago was pulling his kayak with his R arm (post kayaking) and fell foward. He again felt something pull in the R shoulder. He now has R shoulder pain with sleeping and decreased AROM. Tends to sleep on hi R side with arm overhead and sometimes in all different positions. Pt is L handed. PMH: Mealanoma surgery bridge of nose of 2009 . Prior Treatments and Tests None. Initial injury no tests, took care of itself on its own. Future Testing and Treatments Planned None Developmental History Developmental History Dupytren's on L hand ring finger. Treatment Goals Patient/Caregiver Goals Pt goal is to be able to sleep better at night (norm is 7-8 hr broken sleep 4-5x; currently 7-8 hrs broken sleep waking 2x and with R shoulder pain). Increase strength and muscle support. Decreasing or eleviating rid of pain when pulling arm back. Increasing ROM to have less pain with putting something on a shelf, dressing. Prevent reinjury with a specific shoulder home program . Prior Functional Status Baseline Function- ADL's Independent Baseline Function- Mobility Independent Baseline Function- Other Pt has 7-8 hrs of broken sleep waking 2x a night. Current Functional Impairments (Reported) Functional Limitations- ADL's Pt has 7-8 hrs of broken sleep , waking 4-5x a night with R shoulder pain. Personal Factors Other Personal Factors That May Effect Doesn't do much ex during Therapy/Recovery winter. PT-OP-C Subjective Start: 06/01/22 18:08 Freq: Status: Active Protocol: Document 06/26/22 08:14 LRN (Rec: 06/26/22 09:04 LRN [id number]) OP-PT Subjective Patient Comments Patient Comments Some days it's pretty good and has noticed somedays no pain with moving the arm. PT-OP-E Functional Tests Start: 06/01/22 18:08 Freq: Status: Active Protocol: Document 06/04/22 09:06 LRN (Rec: 06/04/22 12:53 LRN [id number]) Functional Tests Apley's Scratch Test Action 2- Left T2 Action 2- Right C6 Action 3- Left T11 Action 3- Right L1 PT-OP-J Posture/Palpation/Skin Start: 06/01/22 18:08 Freq: Status: Active Protocol: Document 06/04/22 09:06 LRN (Rec: 06/04/22 12:53 LRN [id number]) Posture Evaluation Position Standing Head/C-Spine Posture Forward Head T-Spine Posture Flattened L-Spine Posture Decreased Lordosis Scapula Posture (R) Protracted,(R) Retracted,( R) Rotated Up Arm Posture (L) Internally Rotated Pelvis Posture Anteriorly Tilted Weight Distribution Balanced Comments Posture Comments R shoulder retracted, R foot ER> L foot, R arm-mild IR, notable IR of L arm. Palpation Assessment Location R shoulder Palpation Location Around shoulder joint. Palpation Details No palpable pain. Supraspinatus atrophy. PT-OP-K Range of Motion Start: 06/01/22 18:08 Freq: Status: Active Protocol: Document 06/12/22 08:16 LRN (Rec: 06/12/22 09:01 LRN [id number]) Shoulder Goniometric Range of Motion Shoulder Right Passive Testing Position Supine Flexion 165 Abduction 130 External Rotation at 90 degrees 90 Abduction Internal Rotation 60 Comments Pain 130 - 180 deg's AB Left Passive Testing Position Supine Flexion 180 External Rotation at 90 degrees 90 Abduction Internal Rotation 60 Right Active Testing Position Sitting Flexion 155 Extension 55 Abduction 180 Internal Rotation Behind Back (text) L1 Comments Painful arc 100-140 deg's Left Active Testing Position Sitting Flexion 155 Extension 50 Abduction 180 Internal Rotation Behind Back (text) T11 Comments ROM is taken with cuing to UB not to arch. ER T2-T3 interspace. PT-OP-L Special Tests Start: 06/01/22 18:08 Freq: Status: Active Protocol: Document 06/26/22 08:14 LRN (Rec: 06/26/22 10:05 LRN [id number]) Special Tests Cervical Spine Special Tests Traction Test Results + Comments Reduction of anterior R shoulder pain w/mvmt Shoulder Special Tests Clunk Test Test Results - R shoulder Comments Pt did have consistent click in anterior R shoulder (in supine) on lowering of arm at 53 deg's flex. PT-OP-M Strength Start: 06/01/22 18:08 Freq: Status: Active Protocol: Document 06/12/22 08:16 LRN (Rec: 06/12/22 09:01 LRN [id number]) Shoulder Strength Shoulder Manual Muscle Testing Right Flexion 4- Good- Extension 5 Normal Abduction (C5) 5 Normal Adduction 5 Normal External Rotation 4- Good- Internal Rotation 4- Good- Left Comments Generally 5/5 Elbow/Forearm Strength Elbow and Forearm Manual Muscle Testing Right Comments Generally 5/5 Left Comments Generally 5/5 PT-OP-Q Treatments Start: 06/01/22 18:08 Freq: Status: Active Protocol: Document 06/26/22 08:14 LRN (Rec: 06/26/22 09:04 LRN [id number]) Therapeutic Exercises Supine Exercises PROM R shoulder Supine Exercise Name Shoulder passive flex, AB, ER Side right Reps/Minutes 3' Lat pull down Supine Exercise Name Lat pull down Side bilateral Equipment Used Lev 2 TB, 2#, dowel Reps/Minutes 10x 3 Comments No pain with ex Standing Exercises R shldr IR Standing Exercise Name Shoulder IR strengthening, standing Equipment Used Lev 2 TB Reps/Minutes 10x 3, alternating with IR R shldr ER Standing Exercise Name Shoulder ER strengthening, standing Equipment Used Lev 2 TB, towel under elbow Reps/Minutes 10x 3, alternating with IR Comments Cues for elbow tuck, posture, pain free range Manual Therapy Treatment Soft Tissue Mobilization R Pecs Body Location R Pec Min/Frankie at Proximal end Mobilization Type Sustained Pressure Intensity/Depth Moderate Body Position Supine Manual Traction Cervical Details Manual axial & L SB traction Body Position Hooklying Reps/Duration 8' Comments Reduction of R shoulder pain with traction PT-OP-T Assessment and Plan Start: 06/01/22 18:08 Freq: Status: Active Protocol: Document 06/26/22 08:14 LRN (Rec: 06/26/22 09:04 LRN [id number]) Physical Therapy Assessment Goals Four Impairment R shoulder Impairment Pain ful ar with active shoulder flexion and AB. Painful arc flexion is 100-140 deg's. Painful arc with AB starting at 90 deg's. Short Term Goal (STG) Improve R shoulder rotator cuff strength with reduction of painful arc. STG Duration 07/02/22 Fpc Goal (LTG) Improve R shoulder strength with pt able to put something up on a shelf overhead without pain. LTG Duration 08/31/22 Three Impairment R shoulder pain interrupts sleep, pain rated 3/10. Impairment Pt currently wakes 4-5x/night due to R shoulder pain (norm is 7-8 hrs of broken sleep, waking 2x/night). Short Term Goal (STG) Pt will be educated in sleeping postures to minimize onset of R shoulder pain. STG Duration 06/15/22 Fpc Goal (LTG) Pt will be able to sleep better at night, waking 2x/ night, his baseline. LTG Duration 08/31/22 Two Impairment Decreased R shoulder PROM Impairment + impingement with forced R shoulder flexion in sitting and supine. PROM (in deg's): Flex 165 R, 180 L; 90 R. Fpc Goal (LTG) Increasing PROM to have less pain with dressing and sleeping. LTG Duration 08/31/22 One Impairment HEP Short Term Goal (STG) Pt will be independent on a scapular stabilizing HEP to provide strength and muscle support to the R shoulder. 06/12/22: HEP: Shoulder ER/ IR, scap retract/depression, shoulder rolls. 06/14/22: Serratus punches with TB, UT stretch, LS stretch. STG Duration 07/02/22 progressing 06/14 Fpc Goal (LTG) Pt will be independent on a self care, specific shoulder home program to prevent reinjury of R shoulder. 06/12/22: HEP: Shoulder ER/ IR, scap retract/depression, shoulder rolls. 06/14/22:Serratus punches with TB, UT Stretch, LS stretch. LTG Duration 08/31/22 Progressing 06/14/22 Assessment Summary Assessment Negative Clunk Test, although with AAROM pt had click consistently with Supine Extension when returning from overhead position at 53 deg's flex. + Manual C tx resulting in reduction of R anterior shoulder pain on shoulder flex . Pt tolerance to ex improving. Pt may have labral tear, but testing is inconclusive. Cervical neural involvement may be present but testing is inconclusive. Further ongoing assessment is needed. Physical Therapy Plan Frequency and Duration Frequency of Treatment 2x/Week Plan of Care Start Date 06/04/22 Plan of Care End Date 08/31/22 Next Visit Focus/Plan Next Visit Plan Assess R shoulder ROM. Continue shoulder ex, assess HEP (UT/LS stretch, serratus punches). Give feedback to goals. Education: Best night time positioning to reduce R shoulder pain (STG 3). Ex's: ROM & R shoulder RC and scapular stabilizer strengthening (caution with IR due to discomfort with strengthening). Modalities for pain: Cryotherapy. US if prolonged pain.
--- NOTE | 2022-07-02 17:00 | PT.OTN ---
Current Diagnoses Other shoulder lesions, right shoulder (07/02/22) Physical Therapy Treatment Note PT-OP-A Visit Information Start: 06/01/22 18:08 Freq: Status: Active Protocol: Document 07/02/22 14:38 LRN (Rec: 07/02/22 16:59 LRN [id number]) Out-Patient Physical Therapy Visit Information Visit Information Visit Type Treatment Note Visit Start Time 14:38 Visit Stop Time 15:26 Total Visit Minutes 48 Visit Number 5 Evaluation Information Evaluation Date 06/04/22 Precautions Precautions Melanoma on nose w/surgery 2009. PT-OP-B Current Condition Start: 06/01/22 18:08 Freq: Status: Active Protocol: Document 06/04/22 09:06 LRN (Rec: 06/04/22 12:53 LRN [id number]) Current Condition History of Current Condition Onset Date 2017, reinjured 2 months ago. Current Complaints R shoulder pain. History of Current Condition Originally hiking and fell forward; he grabbed something causing his arm to be pulled backwards while he fell forward and he felt something pull in the R shoulder. Two months ago was pulling his kayak with his R arm (post kayaking) and fell foward. He again felt something pull in the R shoulder. He now has R shoulder pain with sleeping and decreased AROM. Tends to sleep on hi R side with arm overhead and sometimes in all different positions. Pt is L handed. PMH: Mealanoma surgery bridge of nose of 2009 . Prior Treatments and Tests None. Initial injury no tests, took care of itself on its own. Future Testing and Treatments Planned None Developmental History Developmental History Dupytren's on L hand ring finger. Treatment Goals Patient/Caregiver Goals Pt goal is to be able to sleep better at night (norm is 7-8 hr broken sleep 4-5x; currently 7-8 hrs broken sleep waking 2x and with R shoulder pain). Increase strength and muscle support. Decreasing or eleviating rid of pain when pulling arm back. Increasing ROM to have less pain with putting something on a shelf, dressing. Prevent reinjury with a specific shoulder home program . Prior Functional Status Baseline Function- ADL's Independent Baseline Function- Mobility Independent Baseline Function- Other Pt has 7-8 hrs of broken sleep waking 2x a night. Current Functional Impairments (Reported) Functional Limitations- ADL's Pt has 7-8 hrs of broken sleep , waking 4-5x a night with R shoulder pain. Personal Factors Other Personal Factors That May Effect Doesn't do much ex during Therapy/Recovery winter. PT-OP-C Subjective Start: 06/01/22 18:08 Freq: Status: Active Protocol: Document 07/02/22 14:38 LRN (Rec: 07/02/22 16:59 LRN [id number]) OP-PT Subjective Patient Comments Patient Comments Noticing more periods where the shoulder doesn't hurt. Was wonderig if the Statin drug might be causing the R shoulder pain. PT-OP-E Functional Tests Start: 06/01/22 18:08 Freq: Status: Active Protocol: Document 06/04/22 09:06 LRN (Rec: 06/04/22 12:53 LRN [id number]) Functional Tests Apley's Scratch Test Action 2- Left T2 Action 2- Right C6 Action 3- Left T11 Action 3- Right L1 PT-OP-J Posture/Palpation/Skin Start: 06/01/22 18:08 Freq: Status: Active Protocol: Document 06/04/22 09:06 LRN (Rec: 06/04/22 12:53 LRN [id number]) Posture Evaluation Position Standing Head/C-Spine Posture Forward Head T-Spine Posture Flattened L-Spine Posture Decreased Lordosis Scapula Posture (R) Protracted,(R) Retracted,( R) Rotated Up Arm Posture (L) Internally Rotated Pelvis Posture Anteriorly Tilted Weight Distribution Balanced Comments Posture Comments R shoulder retracted, R foot ER> L foot, R arm-mild IR, notable IR of L arm. Palpation Assessment Location R shoulder Palpation Location Around shoulder joint. Palpation Details No palpable pain. Supraspinatus atrophy. PT-OP-K Range of Motion Start: 06/01/22 18:08 Freq: Status: Active Protocol: Document 07/02/22 14:38 LRN (Rec: 07/02/22 16:59 LRN [id number]) Shoulder Goniometric Range of Motion Shoulder Right Passive Testing Position Supine Flexion 180 Abduction 180 External Rotation at 90 degrees 90 Abduction Internal Rotation 77 Comments Pain 150 - 180 deg's flex Right Active Testing Position Sitting Flexion 180 Extension 60 Abduction 180 Internal Rotation Behind Back (text) L1 Comments Painful arc 120-180 deg's ABD PT-OP-L Special Tests Start: 06/01/22 18:08 Freq: Status: Active Protocol: Document 06/26/22 08:14 LRN (Rec: 06/26/22 10:05 LRN [id number]) Special Tests Cervical Spine Special Tests Traction Test Results + Comments Reduction of anterior R shoulder pain w/mvmt Shoulder Special Tests Clunk Test Test Results - R shoulder Comments Pt did have consistent click in anterior R shoulder (in supine) on lowering of arm at 53 deg's flex. PT-OP-M Strength Start: 06/01/22 18:08 Freq: Status: Active Protocol: Document 06/12/22 08:16 LRN (Rec: 06/12/22 09:01 LRN [id number]) Shoulder Strength Shoulder Manual Muscle Testing Right Flexion 4- Good- Extension 5 Normal Abduction (C5) 5 Normal Adduction 5 Normal External Rotation 4- Good- Internal Rotation 4- Good- Left Comments Generally 5/5 Elbow/Forearm Strength Elbow and Forearm Manual Muscle Testing Right Comments Generally 5/5 Left Comments Generally 5/5 PT-OP-Q Treatments Start: 06/01/22 18:08 Freq: Status: Active Protocol: Document 07/02/22 14:38 LRN (Rec: 07/02/22 16:59 LRN [id number]) Therapeutic Exercises Supine Exercises Shoulder AROM stretch Supine Exercise Name Shoulder active flex, AB, ER Side right Reps/Minutes 5' Neck Elongation Supine Exercise Name Neck Elongation Reps/Minutes 10 SH x 6 PROM R shoulder Supine Exercise Name PROM R shoulder (Flex, AB, ER, IR Side right Reps/Minutes 15 HABD AROM Supine Exercise Name Horiz AB AROM Side right Reps/Minutes 1' Lat pull down Supine Exercise Name Lat pull down Side bilateral Equipment Used Lev 2 TB, 2#, dowel Reps/Minutes 10x 3 Comments No pain with ex Standing Exercises Neck Elongation w/Row Standing Exercise Name Neck Elongation w/row Comments Extra time needed for education in ex with phys & v cuing to top of head Row Standing Exercise Name Scapular pinches w/o shoulder shrug Side bilateral Reps/Minutes 15 x 2 R shldr IR Standing Exercise Name Shoulder IR strengthening, standing Side right Equipment Used Lev 2 TB Reps/Minutes 10x 3, alternating with IR R shldr ER Standing Exercise Name Shoulder ER strengthening, standing Side right Equipment Used Lev 2 TB, towel under elbow Reps/Minutes 10x 3, alternating with IR Comments Cues for elbow tuck, posture, pain free range Manual Therapy Treatment Manual Traction Cervical Details Manual axial & L SB traction Body Position Hooklying Reps/Duration 8' Comments Reduction of R shoulder pain with traction Self-Care/Home Management Treatment Education Patient Education Posture Other Education Pt educated in best night time positioning (best head/neck posturing in alignment) to reduce R shoulder pain in sidelie and supine. Activities Self-Care/Home Management Activities Issued handout of picture of sidelie positioning. PT-OP-T Assessment and Plan Start: 06/01/22 18:08 Freq: Status: Active Protocol: Document 07/02/22 14:38 LRN (Rec: 07/02/22 16:59 LRN [id number]) Physical Therapy Assessment Goals Four Impairment R shoulder Impairment Pain ful ar with active shoulder flexion and AB. Painful arc flexion is 100-140 deg's. Painful arc with AB starting at 90 deg's. Short Term Goal (STG) Improve R shoulder rotator cuff strength with reduction of painful arc. STG Duration 07/02/22 Alf Goal (LTG) Improve R shoulder strength with pt able to put something up on a shelf overhead without pain. LTG Duration 08/31/22 Three Impairment R shoulder pain interrupts sleep, pain rated 3/10. Impairment Pt currently wakes 4-5x/night due to R shoulder pain (norm is 7-8 hrs of broken sleep, waking 2x/night). Short Term Goal (STG) Pt will be educated in sleeping postures to minimize onset of R shoulder pain. STG Duration 06/15/22 (07/02/22: MET GOAL) Alf Goal (LTG) Pt will be able to sleep better at night, waking 2x/ night, his baseline. LTG Duration 08/31/22 Two Impairment Decreased R shoulder PROM Impairment + impingement with forced R shoulder flexion in sitting and supine. PROM (in deg's): Flex 165 R, 180 L; 90 R. Alf Goal (LTG) Increasing PROM to have less pain with dressing and sleeping. LTG Duration 08/31/22 One Impairment HEP Short Term Goal (STG) Pt will be independent on a scapular stabilizing HEP to provide strength and muscle support to the R shoulder. 06/12/22: HEP: Shoulder ER/ IR, scap retract/depression, shoulder rolls. 06/14/22: Serratus punches with TB, UT stretch, LS stretch. 07/02/22: I/S pt in scap retract ex. STG Duration 07/02/22 progressing [employer]ical Mixer Goal (LTG) Pt will be independent on a self care, specific shoulder home program to prevent reinjury of R shoulder. 06/12/22: HEP: Shoulder ER/ IR, scap retract/depression, shoulder rolls. 06/14/22:Serratus punches with TB, UT Stretch, LS stretch. 07/02/22: I/S pt in scap retract ex. LTG Duration 08/31/22 Progressing Assessment Summary Assessment Pt's painfree AROM is improving although painful arc (Passive supine flex 150-180 deg's, Active AB sitting 120- 180 deg's) is still present. Pt was very receptive to education for best night time positioning to reduce R shoulder pain and appears to have a good understanding of neutral positioning of head on shoulders. Sitting manual C. tx resulted in reduction of R shoulder pain with AB, but pain not eliminated. In supine C. tx eliminated R shoulder pain with active AB; therefore there is a Cervical and GHJ mechanical component to his R shoulder pain. Physical Therapy Plan Frequency and Duration Frequency of Treatment 2x/Week Plan of Care Start Date 06/04/22 Plan of Care End Date 08/31/22 Next Visit Focus/Plan Next Visit Plan Continue RC/scap stab shoulder strengthening, assess HEP (UT /LS stretch, serratus punches) . Review and issue handouts for Row, and add lat pull down and ER/IR strengthening. Give feedback to goals. Ex's: ROM & R shoulder RC and scapular stabilizer strengthening (caution with IR due to discomfort with strengthening). Modalities for pain: Cryotherapy. US if prolonged pain.
--- NOTE | 2022-07-02 17:10 | PT.OPDS ---
Current Diagnoses Other shoulder lesions, right shoulder (07/02/22) Visit Care Team Role Provider Type Tristan Contreras MD Attending Provider Physician Primary Care Provider Referring Provider Specialty: Internal Medicine Address: [address] [place] [address], [facility] Email: [email or web address] Visit Number Visit Number 5 Discharge Summary PT-OP-B Current Condition Start: 06/01/22 18:08 Freq: Status: Active Protocol: Document 06/04/22 09:06 LRN (Rec: 06/04/22 12:53 LRN [id number]) Current Condition History of Current Condition Onset Date 2017, reinjured 2 months ago. Current Complaints R shoulder pain. History of Current Condition Originally hiking and fell forward; he grabbed something causing his arm to be pulled backwards while he fell forward and he felt something pull in the R shoulder. Two months ago was pulling his kayak with his R arm (post kayaking) and fell foward. He again felt something pull in the R shoulder. He now has R shoulder pain with sleeping and decreased AROM. Tends to sleep on hi R side with arm overhead and sometimes in all different positions. Pt is L handed. PMH: [place] surgery bridge of nose of 2009 . Prior Treatments and Tests None. Initial injury no tests, took care of itself on its own. Future Testing and Treatments Planned None Developmental History Developmental History Dupytren's on L hand ring finger. Treatment Goals Patient/Caregiver Goals Pt goal is to be able to sleep better at night (norm is 7-8 hr broken sleep 4-5x; currently 7-8 hrs broken sleep waking 2x and with R shoulder pain). Increase strength and muscle support. Decreasing or eleviating rid of pain when pulling arm back. Increasing ROM to have less pain with putting something on a shelf, dressing. Prevent reinjury with a specific shoulder home program . Prior Functional Status Baseline Function- ADL's Independent Baseline Function- Mobility Independent Baseline Function- Other Pt has 7-8 hrs of broken sleep waking 2x a night. Current Functional Impairments (Reported) Functional Limitations- ADL's Pt has 7-8 hrs of broken sleep , waking 4-5x a night with R shoulder pain. Personal Factors Other Personal Factors That May Effect Doesn't do much ex during Therapy/Recovery winter months. PT-OP-C Subjective Start: 06/01/22 18:08 Freq: Status: Active Protocol: Document 07/02/22 14:38 LRN (Rec: 07/02/22 16:59 LRN [id number]) OP-PT Subjective Patient Comments Patient Comments Noticing more periods where the shoulder doesn't hurt. Was wonderig if the Statin drug might be causing the R shoulder pain. PT-OP-E Functional Tests Start: 06/01/22 18:08 Freq: Status: Active Protocol: Document 06/04/22 09:06 LRN (Rec: 06/04/22 12:53 LRN [id number]) Functional Tests Apley's Scratch Test Action 2- Left T2 Action 2- Right C6 Action 3- Left T11 Action 3- Right L1 PT-OP-J Posture/Palpation/Skin Start: 06/01/22 18:08 Freq: Status: Active Protocol: Document 06/04/22 09:06 LRN (Rec: 06/04/22 12:53 LRN [id number]) Posture Evaluation Position Standing Head/C-Spine Posture Forward Head T-Spine Posture Flattened L-Spine Posture Decreased Lordosis Scapula Posture (R) Protracted,(R) Retracted,( R) Rotated Up Arm Posture (L) Internally Rotated Pelvis Posture Anteriorly Tilted Weight Distribution Balanced Comments Posture Comments R shoulder retracted, R foot ER> L foot, R arm-mild IR, notable IR of L arm. Palpation Assessment Location R shoulder Palpation Location Around shoulder joint. Palpation Details No palpable pain. Supraspinatus atrophy. PT-OP-K Range of Motion Start: 06/01/22 18:08 Freq: Status: Active Protocol: Document 07/02/22 14:38 LRN (Rec: 07/02/22 16:59 LRN [id number]) Shoulder Goniometric Range of Motion Shoulder Right Passive Testing Position Supine Flexion 180 Abduction 180 External Rotation at 90 degrees 90 Abduction Internal Rotation 77 Comments Pain 150 - 180 deg's flex Right Active Testing Position Sitting Flexion 180 Extension 60 Abduction 180 Internal Rotation Behind Back (text) L1 Comments Painful arc 120-180 deg's ABD PT-OP-L Special Tests Start: 06/01/22 18:08 Freq: Status: Active Protocol: Document 06/26/22 08:14 LRN (Rec: 06/26/22 10:05 N [id number]) Special Tests Cervical Spine Special Tests Traction Test Results + Comments Reduction of anterior R shoulder pain w/mvmt Shoulder Special Tests Clunk Test Test Results - R shoulder Comments Pt did have consistent click in anterior R shoulder (in supine) on lowering of arm at 53 deg's flex. PT-OP-M Strength Start: 06/01/22 18:08 Freq: Status: Active Protocol: Document 06/12/22 08:16 LRN (Rec: 06/12/22 09:01 LRN [id number]) Shoulder Strength Shoulder Manual Muscle Testing Right Flexion 4- Good- Extension 5 Normal Abduction (C5) 5 Normal Adduction 5 Normal External Rotation 4- Good- Internal Rotation 4- Good- Left Comments Generally 5/5 Elbow/Forearm Strength Elbow and Forearm Manual Muscle Testing Right Comments Generally 5/5 Left Comments Generally 5/5 PT-OP-T Assessment and Plan Start: 06/01/22 18:08 Freq: Status: Active Protocol: Document 07/02/22 17:03 LRN (Rec: 07/02/22 17:10 LRN [id number]) Physical Therapy Assessment Goals Four Impairment R shoulder Impairment Pain ful ar with active shoulder flexion and AB. Painful arc flexion is 100-140 deg's. Painful arc with AB starting at 90 deg's. Short Term Goal (STG) Improve R shoulder rotator cuff strength with reduction of painful arc. STG Duration 07/02/22 Bank Clerk Goal (LTG) Improve R shoulder strength with pt able to put something up on a shelf overhead without pain. LTG Duration 08/31/22 Three Impairment R shoulder pain interrupts sleep, pain rated 3/10. Impairment Pt currently wakes 4-5x/night due to R shoulder pain (norm is 7-8 hrs of broken sleep, waking 2x/night). Short Term Goal (STG) Pt will be educated in sleeping postures to minimize onset of R shoulder pain. STG Duration 06/15/22 (07/02/22: MET GOAL) Bank Clerk Goal (LTG) Pt will be able to sleep better at night, waking 2x/ night, his baseline. LTG Duration 08/31/22 Two Impairment Decreased R shoulder PROM Impairment + impingement with forced R shoulder flexion in sitting and supine. PROM (in deg's): Flex 165 R, 180 L; 90 R. Shelter Goal (LTG) Increasing PROM to have less pain with dressing and sleeping. LTG Duration 08/31/22 One Impairment HEP Short Term Goal (STG) Pt will be independent on a scapular stabilizing HEP to provide strength and muscle support to the R shoulder. 06/12/22: HEP: Shoulder ER/ IR, scap retract/depression, shoulder rolls. 06/14/22: Serratus punches with TB, UT stretch, LS stretch. 07/02/22: I/S pt in scap retract ex. STG Duration 07/02/22 progressing Shelter Goal (LTG) Pt will be independent on a self care, specific shoulder home program to prevent reinjury of R shoulder. 06/12/22: HEP: Shoulder ER/ IR, scap retract/depression, shoulder rolls. 06/14/22:Serratus punches with TB, UT Stretch, LS stretch. 07/02/22: I/S pt in scap retract ex. LTG Duration 08/31/22 Progressing Assessment Summary Assessment After pt's appointment today, he informed schedulers that he is good enough to be discharged from his program. Pt's painfree AROM was improved although painful arc (Passive supine flex 150-180 deg's, Active AB sitting 120- 180 deg's) was still present. Sitting manual C. tx resulted in reduction of R shoulder pain with AB, but pain not eliminated, but in supine C. tx eliminated R shoulder pain with active AB; therefore there appears to have a Cervical and GHJ mechanical component to his R shoulder pain. The pt has periods of no pain, but he could benefit from completing his rehab program in order to maximize his R shoulder strength and stability. We would be more than happy to work with this pleasant individual again. The pt is being discharged from physical therapy at the pt's request. Physical Therapy Plan Discharge Physical Therapy Discharge Reasons Patient Request Discharge Comments Patient cancelled his final visit and feels that he is good enough to be discharged from his program. The pt could benefit from further physical therapy (see assessment above). Thank you for your referral.
== END 2022-07-04 09:17 | disposition home or self-care (01) ==
LOC: PHYS 14:30
PROVIDERS: PCP Internal Medicine; Referring Provider Internal Medicine; Visit Provider Internal Medicine
DX: M75.81 Other shoulder lesions, right shoulder (principal)
CPT/HCPCS: 97110; 97140; 97162; 97535

== ENCOUNTER → 2022-12-05 08:32 | Outpatient (CLI) | payer MEDICARE, OTHER, SELFPAY ==
[2022-12-07 07:42] LABS: PSA Free % 24.2 % (.); PSA, Total 1.9 ng/mL (0.0-4.0)
== END ==
PROVIDERS: PCP Internal Medicine; Referring Provider Internal Medicine; Visit Provider Internal Medicine
DX: R97.20 Elevated prostate specific antigen [PSA] (principal)
CPT/HCPCS: 36415; 84153; 84154

== ENCOUNTER → 2023-07-23 16:21 | Outpatient (CLI) | payer MEDICARE, BC, SELFPAY ==
[2023-07-23 17:45] LABS: Aspartate Aminotransferase 27 IU/L (17-59); BUN Creatinine Ratio 22.8 (6-22); Blood Urea Nitrogen 23 mg/dL (9-20); Calcium 9.6 mg/dL (8.4-10.2); Carbon Dioxide 29 mmol/L (22-32); Chloride 98 mmol/L (98-107); Cholesterol 178 mg/dL (140-199); Estimated Glomerular Filt Rate > 60 mL/min (>60); Glucose 89 mg/dL (80-110); HDL Cholesterol 63 mg/dL (40-60); HEMOLYSIS < 15 (0-50); LDL Cholesterol Calculated 94 mg/dL (<100); Potassium 3.8 mmol/L (3.4-5.1); Sodium 135 mmol/L (137-145); Triglycerides 106 mg/dL (35-150)
[2023-07-23 18:15] LABS: Prostate Specific Antigen 2.65 ng/mL (0.10-4.00)
== END ==
LOC: LAB 16:24
PROVIDERS: PCP Internal Medicine; Referring Provider Internal Medicine; Visit Provider Internal Medicine
DX: R97.20 Elevated prostate specific antigen [PSA] (principal); E78.2 Mixed hyperlipidemia; N40.1 Benign prostatic hyperplasia with lower urinary tract symptoms; N13.8 Other obstructive and reflux uropathy
CPT/HCPCS: 36415; 80048; 80061; 84153; 84450

== ENCOUNTER 2023-07-24 08:43 | Day surgery (SDC) | payer MEDICARE, OTHER, SELFPAY ==
--- NOTE | 2023-07-24 | PATH_ITS ---
[facility] Accession Number: [id number] No. of containers..02 Tissue . 01 Material submitted: . PART A: colon - POLYP AT 60cm PART B: colon - LEFT COLON POLYP . 01 Diagnosis: A. Colon At 60 cm: Benign lymphoid aggregate. . B. Left Colon, Polyp: Benign lymphoid aggregate. [facility] 07/31/2023 0952 Local . 01 Electronically signed: . Nasrin Coombs MD, Pathologist NPI- [id number] . 01 Gross description: . Part A: POLYP AT 60cm: Received in formalin is 3 fragment(s) of torres, soft tissue measuring 0.4 x 0.2 x 0.1 cm to 0.2 x 0.1 x 0.1 cm submitted entirely in 1 cassette(s) Part B: LEFT COLON POLYP: Received in formalin is 2 fragment(s) of torres, soft tissue measuring 0.3 x 0.2 x 0.2 cm to 0.2 x 0.2 x 0.1 cm submitted entirely in 1 cassette(s) /FIDEL 07/25/2023 0537 Local . 01 Pathologist provided ICD-10: K63.5 . 01 CPT . 483134, [id number] Specimen Comment: A courtesy copy of this report has been sent to [phone] Performed at: [facility] [address] [place] [address], [place], [place] [id number] MD Viktor Jacobs MD Phone: [phone]
[2023-07-24 09:01] VITALS: BMI 25.7
[2023-07-24 09:06] VITALS: BP 143/85; PULSE 75; RESP 16; TEMP 36.1; O2SAT 96
[2023-07-24] MEDS: LACTATED RINGERS 1,000 ML 42 ML IV (09:09)
--- NOTE | 2023-07-24 10:02 | P.HP_ITS ---
History of Present Illness History of Present Illness Chief complaint: Dx Colonoscopy w/poss bx Narrative: Family history of colon cancer in a distant relative and personal history of colon polyps need for follow-up colonoscopy FOR[facility], [facility] Medical History (Updated 07/23/23 @ 12:47 by Tristan Contreras MD) Rising PSA level Overweight Right rotator cuff tendonitis BPH w urinary obs/LUTS History of melanoma Actinic keratosis Chicken pox Cataracts, bilateral Diverticular disease Colon polyps Dupuytren contracture History of colonic polyps Erectile dysfunction Mixed hyperlipidemia Hypercholesteremia Surgical History History of cataract removal with insertion of prosthetic lens (~10/04/09) Status post Mohs surgery (~07/28/12) Family History Father Cancer Mother Macular degeneration Glaucoma Blind Hypertension Hyperlipidemia TIA (transient ischemic attack) Brother Cancer Social History household members: spouse Smoking Status: Never smoker alcohol intake: current Meds Home Medications and Allergies Home Medications Medication Instructions Recorded Confirmed Type rosuvastatin 10 mg tablet 10 mg PO DAILY #90 tabs 05/23/22 07/24/23 Rx sildenafil (pulm.hypertension) 20 20 mg PO DAILY PRN sexual activity 05/23/22 07/24/23 History mg tablet Allergies Allergy/AdvReac Type Severity Reaction Status Date / Time No Known Drug Allergies Allergy Verified 07/24/23 09:00 Exam Vital Signs (past 8 hours): - 07/24/23 09:06 Temperature 96.9 F L Pulse Rate 75 Respiratory Rate 16 Blood Pressure 143/85 H Pulse Oximetry 96 Oxygen Delivery Method Room Air Oxygen Delivery Method Room Air Narrative Exam Narrative: Oropharynx free of lesions Chest clear to auscultation percussion Cardiac exam reveals no S3 or murmur Assessment & Plan Assessment & Plan narrative: Personal history of colon polyps and family history of colon cancer need for follow-up colonoscopy. Risks, benefits, alternatives have been explained.
--- NOTE | 2023-07-24 10:03 | PM.OP.COLON ---
Operative Date/Time/Diagnoses Date of procedure: 07/24/23 Pre-op diagnosis: See indication and findings Procedure & Clinicians Study performed: Family history of colon cancer in a distant relative and personal history of colon polyps. Indications: Colonoscopy Surgeon: Karlee Long Procedure Notes Procedure in detail: After informed consent was obtained the patient was placed in left lateral decubitus position. The video colonoscope was introduced the rectum slowly advanced cecum. Preparation was good. On slow withdrawal mucosa was carefully examined. The scope was removed. The patient tolerated the procedure well. Blood loss none Complications none Sedation mac Findings 1. Two polyps at 60 cm Jumbo biopsy removed 2. Two polyps in the rectosigmoid Jumbo biopsy removed 3. Extensive diverticulosis in the left colon 4. Otherwise negative colonoscopy to cecum Will be in touch with patient regarding follow-up colonoscopy based on pathology.
[2023-07-24 10:29] VITALS: BP 110/62; PULSE 70; RESP 22; TEMP 36.6; O2SAT 94
[2023-07-24 10:34] VITALS: BP 108/63; PULSE 66; RESP 18; O2SAT 96
[2023-07-24 10:39] VITALS: BP 121/65; PULSE 62; RESP 18; O2SAT 96
[2023-07-24 10:45] VITALS: BP 118/70; PULSE 65; RESP 22; TEMP 35.8; O2SAT 98
[2023-07-24 10:50] VITALS: BP 120/72; PULSE 61; RESP 21; O2SAT 99
== END 2023-07-24 11:05 | disposition home or self-care (01) ==
PROVIDERS: PCP Internal Medicine; Referring Provider Internal Medicine Gastroenterology; Visit Provider Internal Medicine Gastroenterology
PROC: 0DJD8ZZ Inspection of Lower Intestinal Tract, Via Natural or Artificial Opening Endoscopic (ICD-10-PCS; CPT 45378; principal; 2023-07-24 10:00)
DX: Z12.11 Encounter for screening for malignant neoplasm of colon (principal); Z86.010 Personal history of colon polyps; K57.30 Diverticulosis of large intestine without perforation or abscess without bleeding; K63.5 Polyp of colon
CPT/HCPCS: 45380; J2704

== ENCOUNTER → 2024-09-09 10:53 | Outpatient (CLI) | payer MEDICARE, OTHER, SELFPAY ==
[2024-09-09 12:22] LABS: Aspartate Aminotransferase 20 IU/L (17-59); BUN Creatinine Ratio 22.8 (6-22); Blood Urea Nitrogen 21 mg/dL (9-20); Calcium 9.5 mg/dL (8.4-10.2); Carbon Dioxide 28 mmol/L (22-32); Chloride 103 mmol/L (98-107); Cholesterol 230 mg/dL (140-199); Estimated Glomerular Filt Rate > 60 mL/min (>60); Glucose 73 mg/dL (80-110); HDL Cholesterol 58 mg/dL (40-60); HEMOLYSIS < 15 (0-50); LDL Cholesterol Calculated 135 mg/dL (<100); Potassium 4.4 mmol/L (3.4-5.1); Sodium 139 mmol/L (137-145); Triglycerides 187 mg/dL (35-150)
[2024-09-09 12:51] LABS: Prostate Specific Antigen 2.88 ng/mL (0.10-4.00)
== END ==
LOC: LAB 10:54
PROVIDERS: PCP Internal Medicine; Referring Provider Internal Medicine; Visit Provider Internal Medicine
DX: N40.1 Benign prostatic hyperplasia with lower urinary tract symptoms (principal); E78.2 Mixed hyperlipidemia; N13.8 Other obstructive and reflux uropathy
CPT/HCPCS: 36415; 80048; 80061; 84153; 84450